=== PATIENT | female | born 1990 | race Two or more races ===

== ENCOUNTER 2024-05-01 08:32 | Observation (INO) | payer MEDICAID ==
[2024-05-01] MEDS ORDERED: PREN1TAB71 OR (15:29)
== END 2024-05-01 16:50 | disposition home or self-care (01) ==
LOC: LDRP 15:03 → UNDOADMOB 15:03 → LDRP 15:24 → UNDODISOB 16:50
PROVIDERS: ADMIT Obstetrics & Gynecology; ATTEND Obstetrics & Gynecology
DX: O24.419 Gestational diabetes mellitus in pregnancy, unspecified control (principal); O62.9 Abnormality of forces of labor, unspecified; Z3A.30 30 weeks gestation of pregnancy
CPT/HCPCS: 59025; 81002; 82962; 94760; G0378

== ENCOUNTER 2024-05-08 09:27 | Observation (INO) | payer MEDICAID ==
[~2024-05-08 09:27] MED LIST: PREN1TAB71 OR
== END 2024-05-08 16:26 | disposition home or self-care (01) ==
LOC: LDRP 14:50 → UNDOADMOB 14:50 → LDRP 15:04 → UNDODISOB 16:26
PROVIDERS: ADMIT Obstetrics & Gynecology; ATTEND Obstetrics & Gynecology
DX: O24.419 Gestational diabetes mellitus in pregnancy, unspecified control (principal); O62.9 Abnormality of forces of labor, unspecified; Z3A.31 31 weeks gestation of pregnancy
CPT/HCPCS: 59025; 76818; 81002; 82948; 82962; 94760; G0378

== ENCOUNTER 2024-05-15 08:44 | Observation (INO) | payer MEDICAID ==
[~2024-05-15] VITALS: Ht 160 cm; Wt 83.9 kg
[2024-05-15] MEDS ORDERED: METF-370 PO (16:47)
== END 2024-05-15 18:24 | disposition home or self-care (01) ==
LOC: UNDOADMOB 15:00 → LDRP 15:00
PROVIDERS: ADMIT Obstetrics & Gynecology; ATTEND Obstetrics & Gynecology
DX: O24.415 Gestational diabetes mellitus in pregnancy, controlled by oral hypoglycemic drugs (principal); Z3A.32 32 weeks gestation of pregnancy; Z79.84 Long term (current) use of oral hypoglycemic drugs; Z91.040 Latex allergy status
CPT/HCPCS: 59025; 76818; 81002; 82948; 82962; 94762; G0378

== ENCOUNTER 2024-05-20 13:45 | Observation (INO) | payer MEDICAID ==
[~2024-05-20 13:45] MED LIST changes: +METF-370 PO
== END 2024-05-20 15:41 | disposition home or self-care (01) ==
LOC: LDRP 13:45
PROVIDERS: ADMIT Obstetrics & Gynecology; ATTEND Obstetrics & Gynecology
DX: O24.419 Gestational diabetes mellitus in pregnancy, unspecified control (principal); O32.2XX0 Maternal care for transverse and oblique lie, not applicable or unspecified; Z3A.33 33 weeks gestation of pregnancy; Z91.040 Latex allergy status
CPT/HCPCS: 76818; 82962; G0378; 59025; 81002; 82948; 94760

== ENCOUNTER 2024-05-29 16:05 | Observation (INO) | payer MEDICAID | END 2024-05-29 17:24 | disposition home or self-care (01) | LOC: LDRP 16:05 → UNDOADMOB 16:05 → LDRP 16:22 | PROVIDERS: ADMIT Obstetrics & Gynecology; ATTEND Obstetrics & Gynecology | DX: O24.419 Gestational diabetes mellitus in pregnancy, unspecified control (principal); Z3A.34 34 weeks gestation of pregnancy; Z91.040 Latex allergy status | CPT/HCPCS: 59025; 76818; 81002; 82948; 82962; 94760; G0378 ==

== ENCOUNTER 2024-06-01 09:00 | Observation (INO) | payer MEDICAID ==
[~2024-06-01] VITALS: Ht 160 cm; Wt 85.3 kg
[2024-06-01] MEDS: TERBUTALINE SULFATE 1 MG/ML 1ML VIAL SC SCH (10:27)
== END 2024-06-01 11:13 | disposition home or self-care (01) ==
LOC: LDRP 09:00
PROVIDERS: ADMIT Obstetrics & Gynecology; ATTEND Obstetrics & Gynecology
DX: O24.419 Gestational diabetes mellitus in pregnancy, unspecified control (principal); Z3A.35 35 weeks gestation of pregnancy
CPT/HCPCS: 59025; 76818; 81002; 82962; 96372; G0378; J3105

== ENCOUNTER 2024-06-05 16:02 | Observation (INO) | payer MEDICAID | END 2024-06-05 18:15 | disposition home or self-care (01) | LOC: LDRP 16:02 | PROVIDERS: ADMIT Obstetrics & Gynecology; ATTEND Obstetrics & Gynecology | DX: O24.419 Gestational diabetes mellitus in pregnancy, unspecified control (principal); Z3A.35 35 weeks gestation of pregnancy; Z91.040 Latex allergy status | CPT/HCPCS: 59025; 76818; 81002; 82962; 94760; G0378 ==

== ENCOUNTER 2024-06-08 08:56 | Observation (INO) | payer MEDICAID | END 2024-06-08 11:40 | disposition home or self-care (01) | LOC: LDRP 09:06 | PROVIDERS: ADMIT Obstetrics & Gynecology; ATTEND Obstetrics & Gynecology | DX: O24.419 Gestational diabetes mellitus in pregnancy, unspecified control (principal); Z3A.33 33 weeks gestation of pregnancy | CPT/HCPCS: 59025; 76818; 81002; 82948; 82962; 94760; G0378 ==

== ENCOUNTER 2024-06-12 00:41 | Observation (INO) | payer MEDICAID ==
[~2024-06-12] VITALS: Ht 165.1 cm; Wt 72.6 kg
== END 2024-06-22 12:13 | disposition home or self-care (01) ==
LOC: LDRP 06-22 10:14
PROVIDERS: ADMIT Obstetrics & Gynecology; ATTEND Obstetrics & Gynecology
DX: O24.419 Gestational diabetes mellitus in pregnancy, unspecified control (principal); Z3A.38 38 weeks gestation of pregnancy; Z91.040 Latex allergy status
CPT/HCPCS: 59025; 76818; 81002; 82948; 82962; 94760; 96360; G0378

== ENCOUNTER 2024-06-12 16:09 | Observation (INO) | payer MEDICAID | END 2024-06-12 17:31 | disposition home or self-care (01) | LOC: LDRP 16:09 | PROVIDERS: ADMIT Obstetrics & Gynecology; ATTEND Obstetrics & Gynecology | DX: O24.419 Gestational diabetes mellitus in pregnancy, unspecified control (principal); Z3A.36 36 weeks gestation of pregnancy | CPT/HCPCS: 59025; 76818; 81002; 82948; 94760; G0378 ==

== ENCOUNTER 2024-06-15 09:03 | Observation (INO) | payer MEDICAID | END 2024-06-15 10:55 | disposition home or self-care (01) | LOC: LDRP 09:03 | PROVIDERS: ADMIT Obstetrics & Gynecology; ATTEND Obstetrics & Gynecology | DX: O24.419 Gestational diabetes mellitus in pregnancy, unspecified control (principal); Z3A.37 37 weeks gestation of pregnancy | CPT/HCPCS: 59025; 76818; 81002; 82948; 82962; 94760; G0378 ==

== ENCOUNTER 2024-06-27 10:12 | Observation (INO) | payer MEDICAID ==
[2024-06-28] MEDS ORDERED: IBUP-1456 PO (08:46)
[2024-06-28] MEDS ORDERED: HYDR-4902 PO (08:46)
[2024-06-28] MEDS ORDERED: DOCU-94 PO (08:46)
== END 2024-06-27 12:15 | disposition home or self-care (01) ==
LOC: LDRP 10:12
PROVIDERS: ADMIT Obstetrics & Gynecology; ATTEND Obstetrics & Gynecology
DX: O24.419 Gestational diabetes mellitus in pregnancy, unspecified control (principal); O26.893 Other specified pregnancy related conditions, third trimester; R10.9 Unspecified abdominal pain; Z3A.38 38 weeks gestation of pregnancy; Z91.040 Latex allergy status
CPT/HCPCS: 59025; 76818; 81002; 82948; 82962; 94760; G0378

== ENCOUNTER 2024-06-28 06:15 | Inpatient (IN) | payer MEDICAID ==
[2024-06-27 12:37] LABS: Basophils # (auto) 0 10 ^3/uL (0-0.2); Basophils % (auto) 0.3 % (0.0-2.0); Eosinophils # (auto) 0.1 10 ^3/uL (0-0.8); Eosinophils % (auto) 0.8 % (0.0-7.0); Hematocrit 41.7 % (36.0-46.0); Lymphocytes # (auto) 1.8 10 ^3/uL (0.4-5.4); Lymphocytes % (auto) 17.8 % (10.0-50.0); Mean Corpuscular Hemoglobin 29.8 pg (28.0-32.0); Mean Corpuscular Hgb Conc. 33.5 g/dL (32.0-36.0); Mean Corpuscular Volume 88.9 fL (80.0-100.0); Monocytes # (auto) 0.5 10 ^3/uL (0-1.3); Monocytes % (auto) 5.2 % (0.0-12.0); Neutrophils # (auto) 7.5 10 ^3/uL (1.6-8.6); Neutrophils % (auto) 75.9 % (37.0-80.0); Platelet Count (auto) 175 10^3/uL (140-450); Red Blood Cells 4.69 10^6/uL (4.0-5.20); Red Cell Distribution Width 14.9 % (11.8-14.3); White Blood Cell 9.9 10^3/uL (4.4-10.8)
[2024-06-27 12:42] LABS: Urine Bacteria None Seen /hpf (None Seen)
[2024-06-27 13:00] LABS: Alanine Aminotransferase 35 U/L (7-40); Albumin 4.2 g/dL (3.2-4.8); Alkaline Phosphatase 128 U/L (46-116); Anion Gap 4 (5-15); Aspartate Aminotransferase 18 U/L (13-40); BUN/Creatinine Ratio 13.6 (10.0-20.0); Blood Urea Nitrogen 6 mg/dL (9-23); Calcium 10.2 mg/dL (8.7-10.4); Carbon Dioxide 25 mmol/L (20-30); Chloride 106 mmol/L (98-107); Glucose 73 mg/dL (74-106); Sodium 135 mmol/L (136-145)
[2024-06-27 13:01] LABS: Bilirubin, Total 0.5 mg/dL (0.2-1.0); Total Protein 7.2 g/dL (5.7-8.2)
[2024-06-27 13:04] LABS: Urine Blood Negative /uL (Negative); Urine Clarity Clear (Clear); Urine Color Light-Yellow (Yellow); Urine Protein, UAD Negative (Negative); Urine Specific Gravity 1.015 (1.001-1.035); Urine Urobilinogen Normal (Negative); Urine WBC 1 /hpf (0 - 5)
[2024-06-27 13:10] LABS: INR 0.92 (0.9-1.15); Partial Thromboplastin Time 24.2 SEC (24.5-34.5); Prothrombin Time 9.8 sec (9.3-11.8)
[2024-06-27 13:14] LABS: Amphetamine Screen, Urine Neg (NEGATIVE)
[2024-06-27 13:16] LABS: Benzodiazephine Screen, Urine Neg (NEGATIVE); Cannabinoid Screen, Urine Neg (NEGATIVE); Cocaine Screen, Urine Neg (NEGATIVE); Opiate Scree,Urine Neg (NEGATIVE); Phencyclidine Screen, Urine Neg (NEGATIVE)
[2024-06-27 14:44] LABS: Barbiturate Scree,Urine Neg (NEGATIVE)
[~2024-06-28] VITALS: Ht 160 cm; Wt 85.3 kg
[2024-06-28] VITALS (13 sets, daily range): BP systolic 102–127; BP diastolic 50–72; PULSE 60–88; RESP 16–18; TEMP 98.4–99.2; O2SAT 95–99
[2024-06-28 07:07] LABS: RPR Non Reactive (Non Reactive)
[2024-06-28] MEDS ORDERED: HYDR-4902 PO (08:46)
[2024-06-28] MEDS ORDERED: DOCU-94 PO (08:46)
[2024-06-28] MEDS ORDERED: IBUP-1456 PO (08:46)
[2024-06-28] MEDS: ceFAZolin 2 GM/D5W50ml 50 ML IV ONE (09:03)
[2024-06-28] MEDS: LACTATED RINGER'S 1,000 ML IV ONE (09:04)
[2024-06-28] MEDS: LACT. RINGERS/OXYTOCIN 20UNITS 1,000 ML IV ONE (09:15)
[2024-06-28] MEDS ORDERED: ceFAZolin 1GM/50ML 50 ML IV SCH (09:15)
[2024-06-28] MEDS ORDERED: oxyTOCIN 10 UNIT/ML 10ML VIAL ONE (09:21)
[2024-06-28] MEDS ORDERED: ONDANSETRON HCL 4 MG/2 ML VIAL ONE (09:21)
[2024-06-28] MEDS ORDERED: DexAMETHasone SOD PHOS 10MG/1ML VIAL INJ ONE (09:21)
[2024-06-28] MEDS ORDERED: MORPHINE SULF PF 5 MG/10 ML VIAL ONE (09:22)
[2024-06-28] MEDS ORDERED: fentaNYL CITRATE 100 MCG/2 ML VL ONE (09:22)
[2024-06-28] MEDS: CARBOPROST TROMETHAMINE 250 MCG/1ML VIAL IM ONE ×2 (10:10)
[2024-06-28] MEDS ORDERED: diphenhdrAMINE HCL 50 MG/1 ML VL ONE (10:41)
[2024-06-28] MEDS ORDERED: ONDANSETRON HCL 4 MG/2 ML VIAL IV PRN (11:00)
[2024-06-28] MEDS ORDERED: NALBUPHINE HCL 10 MG/1ml INJECTION IV ONE (11:00)
[2024-06-28] MEDS ORDERED: diphenhdrAMINE HCL 50 MG/1 ML VL IV PRN (11:00)
[2024-06-28] MEDS ORDERED: HYDROmorphone HCL 2 MG/ML VL/or syr IV PRN (11:00)
[2024-06-28] MEDS ORDERED: NALOXONE HCL 0.4 MG/ML VIAL IV PRN (11:00)
[2024-06-28] MEDS: DIPHENOXYLATE W/ATROPINE 2.5 MG TAB ONE (11:04)
[2024-06-28] MEDS: ONDANSETRON HCL 4 MG/2 ML VIAL IV PRN (13:30)
[2024-06-28] MEDS ORDERED: MORPHINE SULFATE 4 MG/ML SYR/VIAL IV PRN (13:45)
[2024-06-28] MEDS: DIPHENOXYLATE W/ATROPINE 2.5 MG TAB PO ONE (14:24)
[2024-06-28] MEDS: METOCLOPRAMIDE HCL 5MG/ml INJ 2ml VIAL IV PRN (16:27)
[2024-06-28] MEDS: LACTATED RINGER'S 1,000 ML IV SCH (17:04)
[2024-06-28] MEDS: ceFAZolin 1GM/50ML 50 ML IV SCH (17:04)
[2024-06-28 22:22] LABS: Basophils # (auto) 0.1 10 ^3/uL (0-0.2); Basophils % (auto) 0.3 % (0.0-2.0); Eosinophils # (auto) 0 10 ^3/uL (0-0.8); Hematocrit 35.1 % (36.0-46.0); Lymphocytes # (auto) 1.4 10 ^3/uL (0.4-5.4); Lymphocytes % (auto) 7.5 % (10.0-50.0); Mean Corpuscular Hemoglobin 29.8 pg (28.0-32.0); Mean Corpuscular Hgb Conc. 34.2 g/dL (32.0-36.0); Mean Corpuscular Volume 87.2 fL (80.0-100.0); Monocytes # (auto) 0.8 10 ^3/uL (0-1.3); Monocytes % (auto) 4.2 % (0.0-12.0); Neutrophils # (auto) 16.8 10 ^3/uL (1.6-8.6); Platelet Count (auto) 153 10^3/uL (140-450); Red Blood Cells 4.02 10^6/uL (4.0-5.20); Red Cell Distribution Width 14.9 % (11.8-14.3); White Blood Cell 19.1 10^3/uL (4.4-10.8)
[2024-06-29] VITALS (13 sets, daily range): BP systolic 88–119; BP diastolic 57–73; PULSE 75–102; RESP 16–20; TEMP 98–98.9; O2SAT 94–100
[2024-06-29 06:53] LABS: Basophils # (auto) 0 10 ^3/uL (0-0.2); Basophils % (auto) 0.1 % (0.0-2.0); Eosinophils # (auto) 0 10 ^3/uL (0-0.8); Eosinophils % (auto) 0.3 % (0.0-7.0); Hematocrit 33.8 % (36.0-46.0); Hemoglobin 11.5 g/dL (12.2-16.2); Lymphocytes # (auto) 1.8 10 ^3/uL (0.4-5.4); Lymphocytes % (auto) 12.4 % (10.0-50.0); Mean Corpuscular Hemoglobin 30.1 pg (28.0-32.0); Mean Corpuscular Hgb Conc. 33.9 g/dL (32.0-36.0); Mean Corpuscular Volume 88.6 fL (80.0-100.0); Monocytes # (auto) 0.9 10 ^3/uL (0-1.3); Monocytes % (auto) 6.4 % (0.0-12.0); Neutrophils # (auto) 11.8 10 ^3/uL (1.6-8.6); Neutrophils % (auto) 80.8 % (37.0-80.0); Platelet Count (auto) 135 10^3/uL (140-450); Red Blood Cells 3.81 10^6/uL (4.0-5.20); Red Cell Distribution Width 14.6 % (11.8-14.3); White Blood Cell 14.7 10^3/uL (4.4-10.8)
[2024-06-29] MEDS: ACETAMINOPHEN IV 1000 MG/100ML (10MG/ML) IV PRN (07:39)
[2024-06-29] MEDS: DOCUSATE CALCIUM 240 MG CAP PO SCH (09:48)
[2024-06-29] MEDS: DOCUSATE SOD 100 MG CAP PO SCH (09:49)
[2024-06-29] MEDS: HYDROcodone-ACET 5/325MG TAB PO PRN ×2 (10:17→21:44)
[2024-06-29] MEDS: SIMETHICONE 80 MG CHEWABLE TABLET PO SCH (12:36)
[2024-06-29] MEDS: IBUPROFEN 800 MG TAB PO PRN (12:36)
[2024-06-30] MEDS: BISACODYL 10 MG RECT SUPP PR PRN (02:13)
[2024-06-30 02:54] VITALS: BP 106/63; PULSE 76; RESP 14; TEMP 98.5; O2SAT 95
[2024-06-30 07:00] VITALS: BP 107/82; PULSE 80; RESP 17; TEMP 98.5; O2SAT 98
[2024-06-30] MEDS ORDERED: CEPH500T PO (08:42)
== END 2024-06-30 12:36 | disposition home or self-care (01) | DRG 540 ==
LOC: LDRP 06:15
PROVIDERS: ADMIT Obstetrics & Gynecology; ATTEND Obstetrics & Gynecology
PROC: 10D00Z1 Extraction of Products of Conception, Low, Open Approach (ICD-10-PCS; principal; 2024-06-28 09:27)
DX: O32.1XX0 Maternal care for breech presentation, not applicable or unspecified (principal); O24.429 Gestational diabetes mellitus in childbirth, unspecified control; O62.2 Other uterine inertia; Z37.0 Single live birth; Z3A.39 39 weeks gestation of pregnancy
CPT/HCPCS: 36415; 76815; 80053; 80307; 81001; 82948; 85025; 85610; 85730; 86592; 86803; 86850; 86900; 86901; 94760; 94762; 96360; 96361; 96365; 96366; G0378; J0131; J1100; J2405; J2590